=== PATIENT | female | born 1945 | race African-American/Black ===

== ENCOUNTER → 2021-04-07 | Day surgery (SDC) | payer MEDICARE, OTHER ==
[~2021-04-07] VITALS: Ht 160 cm; Wt 140.0 kg
[~2021-04-07] MED LIST: IV RINGERS,LACTATED 1000ML 1,000 ML IV SCH; PANT40TA77 PO; PHENYLEPHRINE in 0.9% NACL PF 1 MG/10 ML SYRINGE. IV ONE; SPIR25TA5 PO; TRAZ-118 PO
[2021-04-07 13:09] VITALS: BP 150/65
--- NOTE | 2021-04-07 13:37 | PDOC4 ---
PROCEDURE Procedure Colonoscopy Indication: Screening/last 2009 Meds: per anesthesia Findings: CHRISTOPHER--normal. --'Scope advanced to cecum. Mucosa normal. Prep adequate. Multiple diverticula, sigmoid to ascending. Internal hemorrhoids on retroflex. Exam otherwise normal. Ana. well. IMP: Diverticulosis IH's Otherwise negative screening exam. REC: Resume home meds, diet. Can f/u with me prn. Given age, no findings, probably no need for future routine exams. GIL VASQUES MD Apr 07, 2021 13:37
[2021-04-07 13:56] VITALS: BP 122/59
== END | disposition home or self-care (01) ==
LOC: ENDOS 12:18
PROVIDERS: ATTEND Internal Medicine Gastroenterology
DX: R19.7 Diarrhea, unspecified (principal); E66.3 Overweight; K64.0 First degree hemorrhoids; K57.30 Diverticulosis of large intestine without perforation or abscess without bleeding; K63.89 Other specified diseases of intestine; I11.0 Hypertensive heart disease with heart failure; I50.9 Heart failure, unspecified; K21.9 Gastro-esophageal reflux disease without esophagitis; E78.00 Pure hypercholesterolemia, unspecified; M19.90 Unspecified osteoarthritis, unspecified site; E11.9 Type 2 diabetes mellitus without complications; F41.9 Anxiety disorder, unspecified; F32.9 Major depressive disorder, single episode, unspecified; G47.30 Sleep apnea, unspecified; Z90.49 Acquired absence of other specified parts of digestive tract; Z98.890 Other specified postprocedural states; Z90.710 Acquired absence of both cervix and uterus; Z79.899 Other long term (current) drug therapy; Z88.8 Allergy status to other drugs, medicaments and biological substances
CPT/HCPCS: 45378; J2370